=== PATIENT | female | born 1955 | race Caucasian/White ===

== ENCOUNTER 2017-03-26 08:44 | Inpatient (IN) | payer MEDICARE, OTHER ==
[~2017-03-26] VITALS: Ht 152.4 cm; Wt 63.5 kg
[2017-03-26] MEDS ORDERED: PREDNISONE 10 M10 MG PO (12:32)
[2017-03-26] MEDS ORDERED: ZITHROMAX500 MG PO (12:32)
[2017-03-26] MEDS ORDERED: ASPIRIN325 MG PO (12:34)
[2017-03-26] MEDS ORDERED: DICLOFENAC SOD100 GM TP (12:34)
[2017-03-26] MEDS ORDERED: LASIX20 MG PO (12:35)
[2017-03-26] MEDS ORDERED: ISOSORBIDE MONO30 MG PO (12:35)
[2017-03-26] MEDS ORDERED: PAXIL20 MG PO (12:36)
[2017-03-26] MEDS ORDERED: REMERON15 M1 PO (12:36)
[2017-03-26] MEDS ORDERED: PHENERGAN 25 MG25 M1 PO (12:37)
[2017-03-26] MEDS ORDERED: PRILOSEC OTC20 MG PO (12:37)
[2017-03-26] MEDS ORDERED: SYMBICORT 16010.2 GM INH (12:38)
[2017-03-26] MEDS ORDERED: SIMVASTATIN20 MG PO (12:38)
[2017-03-26] MEDS ORDERED: VALIUM 5 MG TAB5 MG PO (12:39)
[2017-03-26] MEDS ORDERED: THEOPHYLLINE600 MG PO (12:39)
[2017-03-26] MEDS ORDERED: VENTOLIN/PROVE0.5 ML INH (12:40)
[2017-03-26] MEDS ORDERED: ZANTAC150 MG PO (12:40)
[2017-03-26] MEDS ORDERED: TIZANIDINE HCL2 M1 PO (12:41)
[2017-03-26 14:21] LABS: HEMOGLOBIN 11.1 gm/dl (12.3-15.3); RED BLOOD COUNT 4.21 M/UL (4.00-5.10); WHITE BLOOD COUNT 10.9 K/UL (4.5-11.0)
[2017-03-26 14:36] LABS: BUN/CREATININE RATIO 14 (0-10)
[2017-03-27 04:48] LABS: HEMOGLOBIN 11.2 gm/dl (12.3-15.3); RED BLOOD COUNT 4.26 M/UL (4.00-5.10); WHITE BLOOD COUNT 10.5 K/UL (4.5-11.0)
[2017-03-27 05:12] LABS: BUN/CREATININE RATIO 23 (0-10)
[2017-03-28 05:49] LABS: WHITE BLOOD COUNT 10.9 K/UL (4.5-11.0)
[2017-03-28 05:50] LABS: BUN/CREATININE RATIO 18 (0-10)
[2017-03-28 05:57] LABS: RED BLOOD COUNT 3.81 M/UL (4.00-5.10)
[2017-03-28] MEDS ORDERED: PERCOCET 5-3251 EACH PO (17:15)
[2017-03-28] MEDS ORDERED: LOVENOX SY40 MG/0.4 SQ (17:16)
== END 2017-03-28 19:02 | disposition home or self-care (01) | DRG 482 ==
LOC: M/S 11:12
PROVIDERS: Orthopaedic Surgery; ADMIT Internal Medicine
PROC: 0QSC04Z Reposition Left Lower Femur with Internal Fixation Device, Open Approach (ICD-10-PCS; principal; 2017-03-27 12:45)
DX: S72.452A Displaced supracondylar fracture without intracondylar extension of lower end of left femur, initial encounter for closed fracture (principal); W18.30XA Fall on same level, unspecified, initial encounter; Y92.008 Other place in unspecified non-institutional (private) residence as the place of occurrence of the external cause; J44.9 Chronic obstructive pulmonary disease, unspecified; J84.10 Pulmonary fibrosis, unspecified; I10 Essential (primary) hypertension; E78.5 Hyperlipidemia, unspecified; K21.9 Gastro-esophageal reflux disease without esophagitis; F17.210 Nicotine dependence, cigarettes, uncomplicated; F41.9 Anxiety disorder, unspecified; Z79.52 Long term (current) use of systemic steroids; Z79.51 Long term (current) use of inhaled steroids; Z79.82 Long term (current) use of aspirin; Z79.899 Other long term (current) drug therapy; Z88.6 Allergy status to analgesic agent; Z88.0 Allergy status to penicillin; Z88.2 Allergy status to sulfonamides; Z88.8 Allergy status to other drugs, medicaments and biological substances; Z90.710 Acquired absence of both cervix and uterus; Z98.890 Other specified postprocedural states; Z82.49 Family history of ischemic heart disease and other diseases of the circulatory system; Z80.9 Family history of malignant neoplasm, unspecified
CPT/HCPCS: 36415; 71010; 73502; 73552; 73560; 73700; 76000; 80048; 80053; 81001; 83735; 84439; 84443; 85025; 85610; 87086; 93005; 94640; 94660; 94664; 97530; C1713; C1729; J2270; J2310; J2405; J2710; J2930; J7030; J7120